=== PATIENT | male | born 1970 | race Caucasian/White ===

== ENCOUNTER 2020-02-07 22:13 | Emergency (ER) | payer MEDICAID ==
--- NOTE | 2020-02-07 23:00 | EDM.PDOC ---
ED HPI GENERAL MEDICAL PROBLEM - General Chief Complaint: Laceration Stated Complaint: LACERATION ABOVE EYE Time Seen by Provider: 02/07/20 22:15 Source of Information: Reports: Patient History Limitations: Reports: No Limitations - History of Present Illness INITIAL COMMENTS - FREE TEXT/NARRATIVE: Pt. sustained laceration above his L eye/L lateral eyebrow area shortly before c oming to ER. He states that his tetanus is up to date. Pt. Denies any LOC and states that he remembers the whole event. He is not on anticoagulation. Denies any headache. No nausea/vomiting. Denies any acute vision loss or change. Injury isolated to L eyebrow area. Onset: Today Location: Reports: Head Severity: Mild ED ROS GENERAL - Review of Systems Review Of Systems: Comprehensive ROS is negative, except as noted in HPI. ED EXAM, SKIN/RASH Exam: See Below Exam Limited By: No Limitations General Appearance: Alert, WD/WN, No Apparent Distress Head: Other (3 cm well approximated laceration to L lateral eyebrow area. No obvious jerome deformity to structures underlying the laceration.) ED SKIN PROCEDURES - Laceration/Wound Repair Left Forehead Appearance: Subcutaneous, Linear, Clean Distal NVT: Neuro & Vascular Intact Skin Prep: Chlorhexidine (Hibiciens), Saline Exploration/Debridement/Repair: Wound Explored Closed with: Dermabond Lac/Wound length In cm: 3 Departure - Departure Time of Disposition: 22:59 Disposition: Home, Self-Care 01 Clinical Impression: Laceration - Discharge Information Instructions: Laceration Care, Adult Forms: ED Department Discharge Additional Instructions: Keep dry for 24 hours Return if redness, swelling, or discharge from area Tylenol and ibuprofen as needed for discomfort - Assessment/Plan Plan: Keep dry for 24 hours Return if redness, swelling, or discharge from area Tylenol and ibuprofen as needed for discomfort
== END 2020-02-07 22:40 | disposition home or self-care (01) ==
LOC: VM.ED 22:13
DX: S01.81XA Laceration without foreign body of other part of head, initial encounter (principal); W22.8XXA Striking against or struck by other objects, initial encounter
CPT/HCPCS: 12013; 99282-25; 99283